=== PATIENT | male | born 1945 | race Caucasian/White ===

== ENCOUNTER → 2017-07-25 | Outpatient (CLI) | payer OTHER, MEDICARE | LOC: FIMAGING 08:13 | PROVIDERS: ATTEND Internal Medicine Gastroenterology | DX: K22.5 Diverticulum of esophagus, acquired (principal) ==

== ENCOUNTER 2017-08-06 13:26 | Day surgery (SDC) | payer OTHER, MEDICARE ==
[2017-08-06] MEDS ORDERED: METHYLENE BLUE 0.5% 50 MG/10 ML AMP ONE (13:38)
[2017-08-06] MEDS ORDERED: PROPOFOL 200 MG/20 ML VIAL ONE (13:42)
[2017-08-06] MEDS ORDERED: fentaNYL 100 MCG/2 ML INJ ONE (13:42)
[2017-08-06] MEDS ORDERED: ROCURONIUM 50 MG/5 ML VIAL ONE (13:44)
[2017-08-06] MEDS ORDERED: LIDOCAINE 2% 5 ML SDV ONE (13:45)
[2017-08-06] MEDS ORDERED: LR 1,000 ML IV ONE (13:46)
[2017-08-06] MEDS ORDERED: LIDOCAINE 1% 2 ML INJ ID PRN (13:46)
[2017-08-06] MEDS ORDERED: MIDAZOLAM 2 MG/2 ML VIAL IVP ONE (14:05)
--- NOTE | 2017-08-06 14:05 | PDANEPAE ---
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 ANE Past Medical History - Cardiovascular History Hx Hypertension: No Hx Arrhythmias: No Hx Chest Pain: No Hx Coronary Artery / Peripheral Vascular Disease: No Hx CHF / Valvular Disease: No Hx Palpitations: No - Pulmonary History Hx COPD: No Hx Asthma/Reactive Airway Disease: No Hx Recent Upper Respiratory Infection: No Hx Oxygen in Use at Home: No Hx Sleep Apnea: No Sleep Apnea Screening Result - Last Documented: Negative - Neurologic History Hx Cerebrovascular Accident: No Hx Seizures: No Hx Dementia: No - Endocrine History Hx Diabetes: No Hypothyroid: No Hyperthyroid: No Obesity: no Endocrine History Comment: HYPOTHYROID - Renal History Hx Renal Disorders: Yes Renal History Comment: FREQUENT URINATION - Liver History Hx Hepatic Disorders: No - Neurological & Psychiatric Hx Hx Neurological and Psychiatric Disorders: No Neurological / Psychiatric History Comment: DEPRESSION - Cancer History Hx Cancer: No - Congenital Disorder History Hx Congenital Disorders: No - GI History GERD: mild Hx Gastrointestinal Disorders: Yes Gastrointestinal History Comment: HEARTBURN - Other Health History Other Health History: ROBERTO HYPIPITUARYISM REGULAR FU WITH PATIENT 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 SOON TO HAVE CATARACT SURG. CHRONIC RHINITIS. ED. OSTEOPOROSIS - Chronic Pain History Chronic Pain: No - Surgical History Prior Surgeries: LT BASE OF THUMB RECONSTRUCTION 10/2016 AT [facility]. RT RTC REPAIR 2007. AMNA KNEE SCOPES. AMNA ING HERNIA. REMVL PITUITARY MACROADENOMA 2006 ANE Review of Systems Review of systems is: negative Review of Systems: - Exercise capacity METS (RN): 5 METS ANE Patient History - Allergies Allergies/Adverse Reactions: hydrocodone [From Vicodin] Allergy (Verified 08/05/17 16:18) MILD RASH ibuprofen Allergy (Verified 08/05/17 16:18) MILD RASH oxycodone [From Percocet] Allergy (Verified 08/05/17 16:17) MILD RASH - Home Medications Home medications: home medication list seen and reviewed Home Medications: ASPIRIN DAILY 08/05/17 [Last Taken Unknown] Fluticasone Nasal DAILY06 08/05/17 [Last Taken Unknown] Herbal Drugs DAILY 08/05/17 [Last Taken Unknown] Hydrocortisone BID 08/05/17 [Last Taken Unknown] Omeprazole HS 08/05/17 [Last Taken Unknown] Somatropin HS 08/05/17 [Last Taken Unknown] Synthroid DAILY06 11/14/17 [Last Taken Unknown] Testim DAILY06 08/05/17 [Last Taken Unknown] Wellbutrin Sr BID 08/05/17 [Last Taken Unknown] - Anes Hx Anes Hx: no prior problems - Smoking Hx Smoking Status: Former smoker ANE Labs/Vital Signs - Vital Signs Height: 185.42 cm Weight: 67.585 kg ANE Physical Exam - Airway Neck exam: FROM Mallampati Score: Class 1 Mouth exam: normal dental/mouth exam - Pulmonary Pulmonary: no respiratory distress - Cardiovascular Cardiovascular: regular rate and rhythym - ASA Status ASA Status: II ANE Anesthesia Plan Anesthesia Plan: general endotracheal anesthesia Specialized Airway: video laryngoscope
[2017-08-06 14:20] VITALS: PULSE 73
[2017-08-06] MEDS ORDERED: ceFAZolin 2 GM/SWFI 2 GM/20 ML SYR IVP ONE (14:21)
[2017-08-06] MEDS ORDERED: PROPOFOL/EMULSION 500 MG/50 ML BOTTLE IV ONE (14:22)
[2017-08-06] MEDS ORDERED: REMIFENTANIL HCL 1 MG VIAL ONE (14:22)
[2017-08-06] MEDS ORDERED: ceFAZolin 2 GM/SWFI 20 ML SYR IVP ONE (14:23)
[2017-08-06] MEDS ORDERED: methylPREDNISolone SOD SUCC 125 MG/2 ML VIAL ONE (15:02)
[2017-08-06] MEDS ORDERED: HYDROCORTISONE 100 MG/2 ML VIAL ONE (15:02)
[2017-08-06] MEDS ORDERED: DEXAMETHASONE 4 MG/ML VIAL ONE ×2 (15:06)
[2017-08-06] MEDS ORDERED: D5W 1/2 NS 1,000 ML IV SCH (15:45)
[2017-08-06] MEDS ORDERED: ACETAMINOPHEN 500 MG TAB PO PRN (15:49)
[2017-08-06] MEDS ORDERED: PROMETHAZINE HCL 25 MG/ML INJ IVP PRN (15:49)
[2017-08-06] MEDS ORDERED: NALOXONE HCL 0.4 MG/ML INJ IVP PRN (15:49)
[2017-08-06] MEDS ORDERED: ALBUTEROL 3 ML DEYVIAL IH PRN (15:49)
[2017-08-06] MEDS ORDERED: ONDANSETRON 4 MG/2 ML VIAL IVP PRN (15:49)
[2017-08-06] MEDS ORDERED: LR 500 ML IV PRN (15:49)
[2017-08-06] MEDS ORDERED: HYDROmorphONE/DILAUDID 1 MG/ML INJ IVP PRN (15:49)
[2017-08-06] MEDS ORDERED: fentaNYL 100 MCG/2 ML INJ IVP PRN (15:49)
--- NOTE | 2017-08-06 15:51 | POSTANESTH ---
Post Anesthetic Evaluation Cardiovascular Status: Normal, Stable Respiratory Status: Normal, Stable Level of Consciousness/Mental Status: Can Participate in Eval Pain Control: Adequate, Prn Tx Ordered Nausea/Vomiting Control: Adequate, Prn Tx Ordered Complications Possibly Related to Anesthesia: None Noted
[2017-08-06] MEDS ORDERED: ACETAMINOPHEN 160 MG/5 ML UDCUP PO PRN (15:56)
[2017-08-06 15:58] VITALS: TEMP 96.8
[2017-08-06 16:24] VITALS: RESP 18
[2017-08-06 16:54] VITALS: BP 154/93; O2SAT 89
== END 2017-08-06 17:23 | disposition home or self-care (01) ==
LOC: FSGY 13:26
PROVIDERS: ATTEND Otolaryngology
PROC: 0DL Gastrointestinal System, Occlusion (ICD-10-PCS; principal; 2017-08-06 14:30)
DX: K22.5 Diverticulum of esophagus, acquired (principal); E03.9 Hypothyroidism, unspecified; R35.0 Frequency of micturition; F32.9 Major depressive disorder, single episode, unspecified; E23.0 Hypopituitarism; R12 Heartburn
CPT/HCPCS: J0171; J0690; J1100; J2250; J2704; J2930; J3010; Q9968

== ENCOUNTER 2018-01-29 12:45 | Emergency (ER) | payer OTHER, MEDICARE ==
[2018-01-29] MEDS ORDERED: ACETAMINOPHEN 325 MG TAB PO ONE (13:59)
[2018-01-29 14:18] LABS: PLATELET COUNT 218 10^3/uL (150-400)
[2018-01-29] MEDS ORDERED: HYDROCORTISONE 100 MG/2 ML VIAL IVP ONE (14:46)
[2018-01-29] MEDS ORDERED: NS 1,000 ML IV ONE (14:47)
--- NOTE | 2018-01-29 14:50 | EDPHY ---
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 3 weeks ago, he began feeling more weak than usual. Associated with gradually increasing fatigue. The symptoms worsened over last 2-3 days and now he feels dizzy when he stands up. He felt like he might fall just prior to arrival. He took an extra dose of steroids just prior to arrival, thinking that he may have an adrenal crisis. No URI symptoms, cough, vomiting, abdominal pain, UTI symptoms. REVIEW OF SYSTEMS: complete 10 point ROS negative except at noted in the HPI - Personal History Current Tetanus/Diphtheria Vaccine: Yes Current Tetanus Diphtheria and Acellular Pertussis (TDAP): Yes - Medical/Surgical History Hx Asthma: No Hx Chronic Respiratory Disease: No Hx Diabetes: No Hx Cardiac Disease: No Hx Renal Disease: No Hx Cirrhosis: No Hx Alcoholism: No Hx HIV/AIDS: No Hx Splenectomy or Spleen Trauma: No Other PMH: hypopituitarism 2/2 tumor and surgery, hypothyroid, cataract surgery, - Social History Smoking Status: Never smoked - Physical Exam Exam: General Appearance: Alert, pleasant Eyes: Pupils equal and round, no conjunctival pallor or injection ENT, Mouth: Mucous membranes moist Neck: Normal inspection Respiratory: Lungs are clear to auscultation Cardiovascular: Regular rate and rhythm Gastrointestinal: Abdomen is soft, right upper quadrant tenderness Neurological: A&O, nonfocal exam Skin: Warm and dry, no rash Extremities: Nontender, no pedal edema Psychiatric: Mood and affect normal Constitutional: Initial Vital Signs Temperature (C) 38.2 C 01/29/18 12:52 Heart Rate 89 01/29/18 12:52 Respiratory Rate 16 01/29/18 12:52 Blood Pressure 138/88 H 01/29/18 12:52 O2 Sat (%) 96 01/29/18 12:52 O2 Delivery Mode Room Air Allergies/Adverse Reactions: hydrocodone [From Vicodin] Allergy (Verified 01/29/18 12:51) MILD RASH ibuprofen Allergy (Verified 01/29/18 12:51) MILD RASH oxycodone [From Percocet] Allergy (Verified 01/29/18 12:51) MILD RASH tapes Allergy (Uncoded 01/29/18 12:51) mild rash Home Medications: Medication Instructions Recorded Fluticasone Nasal DAILY06 08/05/17 Herbal Drugs DAILY 08/05/17 Hydrocortisone BID 08/05/17 Omeprazole HS 08/05/17 Somatropin HS 08/05/17 Synthroid DAILY06 08/05/17 Testim DAILY06 08/05/17 Wellbutrin Sr BID 08/05/17 Testosterone 01/29/18 Medical Decision Making - Diagnostics Imaging Results: Imaging Impressions Chest X-Ray 01/29/18 13:59 Impression: 1. No evidence of acute intrathoracic pathology. 2. Chronic obstructive airways disease. Abdomen Ultrasound 01/29/18 14:46 Impression: 1. No cholelithiasis or biliary ductal dilation. 2. Mild hepatomegaly without definite focal masses or ascites. ED Course/Re-evaluation: This patient presents with a low-grade fever and generalized weakness. Concerning for adrenal insufficiency, in this patient with known hypothyroidism. He has an intermittent headache as well, and I do not suspect that he has meningitis. Otherwise, exam is nonfocal, unclear etiology of fever. IV normal saline 1 L and hydrocortisone 100 mg IV given. Evaluation is normal, including chest x-ray, urinalysis and right upper quadrant ultrasound, except for leukocytosis. Feels better after IV fluids. Etiology of fever remains unclear. Feels better overall after IV fluids and Tylenol. Ambulates with a steady gait. Admission versus discharge home discussed with the patient. He has decided to go home. He will follow up with his primary care physician tomorrow. He will return to the emergency department for worsening symptoms or any concerns. Differential Diagnosis: Differential diagnosis includes pyelonephritis, cholecystitis, influenza, cellulitis, pneumonia, abscess, meningitis. - Data Points Laboratory Results: Laboratory Results 01/29/18 14:10 01/29/18 14:10 01/29/18 01/29/18 01/29/18 16:00 14:30 14:25 WBC RBC Hgb Hct MCV MCH MCHC RDW Plt Count MPV Neut % (Auto) Lymph % (Auto) [place] % (Auto) Eos % (Auto) Baso % (Auto) Nucleat RBC Rel Count Absolute Neuts (auto) Absolute Lymphs (auto) Absolute Monos (auto) Absolute Eos (auto) Absolute Basos (auto) Absolute Nucleated RBC Immature Gran % Immature Gran # VBG Lactic Acid 1.2 mmol/L mmol/L (0.7-2.1) Sodium Potassium Chloride Carbon Dioxide Anion Gap BUN Creatinine Estimated GFR Glucose Calcium Total Bilirubin Conjugated Bilirubin Unconjugated Bilirubin AST ALT Alkaline Phosphatase Total Protein Albumin Urine Color LT. YELLOW Urine Appearance CLEAR Urine pH 6.0 (5.0-7.5) Ur Specific [place] <= 1.005 (1.002-1.030) Urine Protein NEGATIVE (NEGATIVE) Urine Ketones NEGATIVE (NEGATIVE) Urine Blood NEGATIVE (NEGATIVE) Urine Nitrate NEGATIVE (NEGATIVE) Urine Bilirubin NEGATIVE (NEGATIVE) Urine Urobilinogen 0.2 EU EU (0.2-1.0) Ur Leukocyte Esterase NEGATIVE (NEGATIVE) Urine Glucose NEGATIVE (NEGATIVE) Nasal Influenza A PCR NEGATIVE FOR FLU A (NEGATIVE) Nasal Influenza B PCR NEGATIVE FOR FLU B (NEGATIVE) 01/29/18 01/29/18 14:10 14:10 WBC 20.58 10^3/uL H 10^3/uL (3.80-9.50) RBC 5.07 10^6/uL 10^6/uL (4.40-6.38) Hgb 15.2 g/dL g/dL (13.7-17.5) Hct 44.6 % % (40.0-51.0) MCV 88.0 fL fL (81.5-99.8) MCH 30.0 pg pg (27.9-34.1) MCHC 34.1 g/dL g/dL (32.4-36.7) RDW 13.1 % % (11.5-15.2) Plt Count 218 10^3/uL 10^3/uL (150-400) MPV 10.8 fL fL (8.7-11.7) Neut % (Auto) 90.6 % H % (39.3-74.2) Lymph % (Auto) 4.0 % L % (15.0-45.0) [place] % (Auto) 4.2 % L % (4.5-13.0) Eos % (Auto) 0.5 % L % (0.6-7.6) Baso % (Auto) 0.2 % L % (0.3-1.7) Nucleat RBC Rel Count 0.0 % % (0.0-0.2) Absolute Neuts (auto) 18.65 10^3/uL H 10^3/uL (1.70-6.50) Absolute Lymphs (auto) 0.82 10^3/uL L 10^3/uL (1.00-3.00) Absolute Monos (auto) 0.86 10^3/uL H 10^3/uL (0.30-0.80) Absolute Eos (auto) 0.10 10^3/uL 10^3/uL (0.03-0.40) Absolute Basos (auto) 0.05 10^3/uL 10^3/uL (0.02-0.10) Absolute Nucleated RBC 0.00 10^3/uL 10^3/uL (0-0.01) Immature Gran % 0.5 % % (0.0-1.1) Immature Gran # 0.10 10^3/uL 10^3/uL (0.00-0.10) VBG Lactic Acid Sodium 140 mEq/L mEq/L (135-145) Potassium 4.7 mEq/L mEq/L (3.5-5.2) Chloride 104 mEq/L mEq/L (97-110) Carbon Dioxide 25 mEq/l mEq/l (22-31) Anion Gap 11 mEq/L mEq/L (8-16) BUN 24 mg/dL H mg/dL (7-23) Creatinine 1.0 mg/dL mg/dL (0.7-1.3) Estimated GFR > 60 Glucose 96 mg/dL mg/dL (70-100) Calcium 8.9 mg/dL mg/dL (8.5-10.4) Total Bilirubin 0.8 mg/dL mg/dL (0.1-1.4) Conjugated Bilirubin 0.3 mg/dL mg/dL (0.0-0.5) Unconjugated Bilirubin 0.5 mg/dL mg/dL (0.0-1.1) AST 18 IU/L IU/L (17-59) ALT 23 IU/L IU/L (21-72) Alkaline Phosphatase 53 IU/L IU/L (38-126) Total Protein 6.8 g/dL g/dL (6.3-8.2) Albumin 3.9 g/dL g/dL (3.5-5.0) Urine Color Urine Appearance Urine pH Ur Specific [place] Urine Protein Urine Ketones Urine Blood Urine Nitrate Urine Bilirubin Urine Urobilinogen Ur Leukocyte Esterase Urine Glucose Nasal Influenza A PCR Nasal Influenza B PCR Medications Given: Discontinued Medications Acetaminophen (Tylenol) 650 mg PO EDNOW ONE Stop: 01/29/18 14:00 Last Admin: 01/29/18 14:03 Dose: 650 mg Hydrocortisone (Solucortef) 100 mg IVP EDNOW ONE Stop: 01/29/18 14:47 Last Admin: 01/29/18 14:56 Dose: 100 mg Sodium Chloride (Ns) 1,000 mls @ 0 mls/hr IV ONCE ONE; Wide Open PRN Reason: Protocol Stop: 01/29/18 14:48 Last Admin: 01/29/18 14:56 Dose: 1,000 mls Departure - Departure Disposition: Home, Routine, Self-Care Clinical Impression: Fever Qualifiers: Fever type: unspecified Qualified Code(s): R50.9 - Fever, unspecified Condition: Good Instructions: Fever in Adults (ED) Additional Instructions: Take Tylenol every 4 hr as needed for fever. Return for worsening symptoms or any concerns. Follow-up with your physician tomorrow for recheck. Referrals: Timo Roth MD [Primary Care Provider] - 1 day without fail
[2018-01-29 17:36] VITALS: BP 130/70
== END 2018-01-29 17:36 | disposition home or self-care (01) ==
DX: R50.9 Fever, unspecified (principal); E86.9 Volume depletion, unspecified
CPT/HCPCS: 71046; 76705; 96361; 96374; 99285; J1720

== ENCOUNTER → 2018-02-13 | Outpatient (CLI) | payer OTHER, MEDICARE | LOC: FIMAGING 10:51 | PROVIDERS: ATTEND Otolaryngology | DX: K22.5 Diverticulum of esophagus, acquired (principal); K21.9 Gastro-esophageal reflux disease without esophagitis ==

== ENCOUNTER 2018-02-20 07:27 | Day surgery (SDC) | payer OTHER, MEDICARE ==
[2018-02-20] MEDS ORDERED: ceFAZolin 2 GM/DEXTROSE 100 ML IV ONE (07:45)
[2018-02-20] MEDS ORDERED: LR 1,000 ML IV ONE (07:49)
[2018-02-20] MEDS ORDERED: MIDAZOLAM 2 MG/2 ML VIAL IVP ONE (08:15)
--- NOTE | 2018-02-20 08:15 | PDANEPAE ---
ANE History of Present Illness esophagoscopy Zenkers excision ANE Past Medical History - Cardiovascular History Hx Hypertension: No Hx Arrhythmias: No Hx Chest Pain: No Hx Coronary Artery / Peripheral Vascular Disease: No Hx CHF / Valvular Disease: No Hx Palpitations: No - Pulmonary History Hx COPD: No Hx Asthma/Reactive Airway Disease: No Hx Recent Upper Respiratory Infection: No Hx Oxygen in Use at Home: No Hx Sleep Apnea: No Sleep Apnea Screening Result - Last Documented: Negative - Neurologic History Hx Cerebrovascular Accident: No Hx Seizures: No Hx Dementia: No - Endocrine History Hx Diabetes: No Endocrine History Comment: HYPOTHYROIDISM - Renal History Hx Renal Disorders: Yes Renal History Comment: BPH. ED. 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 DIVERTICULOSIS - Congenital Disorder History Hx Congenital Disorders: No - GI History Hx Gastrointestinal Disorders: Yes Gastrointestinal History Comment: GERD. 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 CHRONIC RHINITIS. OSTEOPOROSIS - Chronic Pain History Chronic Pain: No - Surgical History Prior Surgeries: BILATERAL CATARACT SURG. RIGHT HAND SURGERY. 08/06/17 CLOSURE OF ZEIKERS DIVERTICULUM WITH LEA. LT BASE OF THUMB RECONSTRUCTION 2016 AT [facility]. RT RTC REPAIR 2007. AMNA KNEE SCOPES. AMNA ING HERNIA. REMVL PITUITARY MACROADENOMA 2006 ANE Review of Systems Review of systems is: negative Review of Systems: - Exercise capacity METS (RN): 5 METS ANE Patient History - Allergies Allergies/Adverse Reactions: hydrocodone [From Vicodin] Allergy (Verified 02/19/18 17:31) MILD RASH ibuprofen Allergy (Verified 02/19/18 17:31) MILD RASH oxycodone [From Percocet] Allergy (Verified 02/19/18 17:31) MILD RASH tapes Allergy (Uncoded 02/19/18 17:31) mild rash/ ITCHY - Home Medications Home medications: home medication list seen and reviewed Home Medications: Fluticasone Nasal DAILY06 08/05/17 [Last Taken 02/19/18 06:00] Herbal Drugs DAILY 08/05/17 [Last Taken 02/19/18 18:00] Hydrocortisone BID 08/05/17 [Last Taken 02/19/18 15:00] Somatropin HS 08/05/17 [Last Taken 02/19/18 19:00] Synthroid 08/05/17 [Last Taken 02/19/18 06:00] Wellbutrin Sr BID 08/05/17 [Last Taken 02/19/18 19:00] Testosterone 01/29/18 [Last Taken 02/19/18 06:00] Ranitidine HCl 02/19/18 [Last Taken 02/19/18 06:00] Aspirin [Aspirin 81mg (*)] 02/20/18 [Last Taken 02/19/18 06:00] Herbals/Supplements -Info Only 02/20/18 [Last Taken 02/17/18] - NPO status NPO Since - Liquids (Date): 02/19/18 NPO Since - Liquids (Time): 21:30 NPO Since - Solids (Date): 02/19/18 NPO Since - Solids (Time): 21:30 - Anes Hx Anes Hx: no prior problems - Smoking Hx Smoking Status: Never smoked - Family Anes Hx Family Anes Hx: none Family Hx Anesthesia Complications: NONE ANE Labs/Vital Signs - Vital Signs Vital Signs: reviewed preoperatively; see RN documention for details Height: 185.42 cm Weight: 68.039 kg ANE Physical Exam - Airway Neck exam: FROM Mallampati Score: Class 1 Mouth exam: normal dental/mouth exam - Pulmonary Pulmonary: no respiratory distress - Cardiovascular Cardiovascular: regular rate and rhythym - ASA Status ASA Status: II ANE Anesthesia Plan Anesthesia Plan: general endotracheal anesthesia
[2018-02-20] MEDS ORDERED: DEXAMETHASONE 4 MG/ML VIAL ONE (09:04)
[2018-02-20] MEDS ORDERED: ROCURONIUM 50 MG/5 ML VIAL ONE (09:04)
[2018-02-20] MEDS ORDERED: LIDOCAINE 2% 100 MG/5 ML SYR ONE (09:04)
[2018-02-20] MEDS ORDERED: ONDANSETRON 4 MG/2 ML VIAL ONE (09:04)
[2018-02-20] MEDS ORDERED: fentaNYL 250 MCG/5 ML INJ ONE (09:04)
[2018-02-20] MEDS ORDERED: PROPOFOL 200 MG/20 ML VIAL ONE ×2 (09:05→09:27)
[2018-02-20] MEDS ORDERED: HYDROCORTISONE 100 MG/2 ML VIAL ONE (09:05)
--- NOTE | 2018-02-20 09:15 | PDHPUP ---
History & Physical Update H&P update statement: This history and physical update is based on an assessment of the patient which was completed after admission or registration (within 24 hours), but prior to the surgery/procedure. H&P update: H&P reviewed & patient examined, no change in patient's condition since H&P completed
[2018-02-20] MEDS ORDERED: DEXAMETHASONE 4 MG/ML VIAL IVP PRN (09:53)
[2018-02-20] MEDS ORDERED: MEPERIDINE 25 MG/0.5 ML AMP IVP PRN (09:53)
[2018-02-20] MEDS ORDERED: PROMETHAZINE HCL 25 MG/ML INJ IVP PRN (09:53)
[2018-02-20] MEDS ORDERED: HYDROmorphONE/DILAUDID 2 MG/ML INJ IVP PRN (09:53)
[2018-02-20] MEDS ORDERED: ONDANSETRON 4 MG/2 ML VIAL IVP PRN (09:53)
[2018-02-20] MEDS ORDERED: ACETAMINOPHEN 500 MG TAB PO PRN (09:53)
[2018-02-20] MEDS ORDERED: fentaNYL 100 MCG/2 ML INJ IVP PRN (09:53)
[2018-02-20] MEDS ORDERED: NALOXONE HCL 0.4 MG/ML INJ IVP PRN (09:53)
--- NOTE | 2018-02-20 09:56 | POSTANESTH ---
Post Anesthetic Evaluation Cardiovascular Status: Normal, Stable, Similar to Pre-Op Cond Respiratory Status: Normal, Stable, Similar to Pre-op Cond. Level of Consciousness/Mental Status: Can Participate in Eval, Mildly Sleepy, Arousable Pain Control: Adequate, Prn Tx Ordered Nausea/Vomiting Control: Adequate, Prn Tx Ordered Complications Possibly Related to Anesthesia: None Noted
[2018-02-20] MEDS ORDERED: SUGAMMADEX SODIUM 200 MG/2 ML VIAL IVP ONE (10:03)
--- NOTE | 2018-02-20 10:06 | POSTOPPROG ---
Post Op Note Date of Operation: 02/20/18 Surgeon: Wes Chan Anesthesia: GET(General Endotracheal) Pre-op Diagnosis: Zenkers diverticulum Post-op Diagnosis: Zenkers diverticulum Indication: Zenkers diverticulum Procedure: Endoscopic Zenkers diverticulotomy Findings: Zenkers diverticulum Inf/Abcess present in the surg proc area at time of surgery?: No Depth: Deep Incisional (Fascial) EBL: Minimal Complications: none Specimen(s): none
[2018-02-20 12:29] VITALS: BP 136/70
--- NOTE | 2018-03-14 20:11 | GOP ---
[f rep st] OPERATIVE REPORT DATE OF OPERATION: 02/20/2018 SURGEON: Wes Chan MD ANESTHESIA: General. PREOPERATIVE DIAGNOSIS: Recurrent Zenker diverticulum. POSTOPERATIVE DIAGNOSIS: Recurrent Zenker diverticulum. PROCEDURE PERFORMED: Revision, endoscopic Zenker diverticulotomy. FINDINGS: 1.5 cm libertarian wall within the proximal esophagus distal to the esophageal inlet. SPECIMENS: None. ESTIMATED BLOOD LOSS: Minimal. INDICATIONS: Patient was seen in outpatient clinic and found to have recurring symptoms consistent w ith Zenker diverticulum. Swallow study corroborated this concern. Given his history and findings, patti falcon was determined to be an appropriate candidate for the above-stated procedure. The risks, benefits, and alternatives to the procedure were explained at length to the patient who stated he understood a nd wished to go forward with the procedure. DESCRIPTION OF PROCEDURE: Patient was brought to the operating room by Anesthesiology and placed on the operating table. Once the appropriate level of anesthesia was achieved, the patient was prepped and draped in the usual fashion. The table was turned 90 degrees. The oral cavity was inspected. N o masses or lesions were found. A tooth guard was placed on the maxillary teeth. A Weerda laryngosc ope was placed atraumatically in the oral cavity and passed through the oral cavity, oropharynx, and hypopharynx. Esophageal inlet was identified, and the laryngoscope was passed through. Using direct visualization, the diverticulum was identified. The inferior blade of the scope was placed within t he Zenker diverticulum while the superior blade passed distally into the esophagus. The laryngoscope was then deployed and suspended on a Arnold stand. A 0-degree Asif chip with attached video endosco pe was then used to visualize the libertarian wall of the diverticulum. An endoscopic suture was then plac ed at the right lateral aspect of the diverticulum. This was used to retract the libertarian wall superior ly. GI stapler was then passed through the scope, and the suture retraction was used to introduce th e diverticulum into the endoscopic stapler. This was then locked and deployed. The stapler was then removed, and the site was inspected under endoscopic visualization. There was no evidence of residu al diverticulum. The staple site was intact, and there was no evidence of bleeding. A number of alysia e max were removed. The video endoscope was removed, the suture was cut and removed, and finally the laryngoscope was removed. The patient tolerated these procedures well and was extubated in the operating room prior to being transferred in good condition to the Postanesthesia Care Unit. COMPLICATIONS: None. /[id number]/MODL
== END 2018-02-20 12:18 | disposition home or self-care (01) ==
LOC: FSGY 07:27
PROVIDERS: ATTEND Otolaryngology
PROC: 0DB58ZZ Excision of Esophagus, Via Natural or Artificial Opening Endoscopic (ICD-10-PCS; principal; 2018-02-20 09:00)
DX: K22.5 Diverticulum of esophagus, acquired (principal)
CPT/HCPCS: J0690; J1100; J1720; J2001; J2250; J2405; J2704; J3010

== ENCOUNTER → 2018-12-08 | Outpatient (CLI) | payer OTHER, MEDICARE | LOC: BMCIMAGING 10:16 | PROVIDERS: ATTEND Family Medicine | DX: J44.9 Chronic obstructive pulmonary disease, unspecified (principal) ==